=== PATIENT | female | born 1985 | race Caucasian/White ===

== ENCOUNTER → 2021-02-28 10:17 | Outpatient (CLI) | payer OTHER, SELFPAY ==
[2021-03-03 09:58] LABS: Alder IgE <0.10 kU/L (Class 0); Almond IgE <0.10 kU/L (Class 0); Alternaria alternata IgE <0.10 kU/L (Class 0); Aspergillus fumigatus IgE <0.10 kU/L (Class 0); Box Elder IgE <0.10 kU/L (Class 0); Cashew Nut IgE <0.10 kU/L (Class 0); Cladosporium herbarum IgE <0.10 kU/L (Class 0); Cockroach IgE <0.10 kU/L (Class 0); Codfish Allergy IgE < 0.10 kU/L (Class 0); Cottonwood IgE <0.10 kU/L (Class 0); D farinae IgE <0.10 kU/L (Class 0); D pteronyssinus IgE <0.10 kU/L (Class 0); Dog Dander IgE <0.10 kU/L (Class 0); Egg White IgE <0.10 kU/L (Class 0); Elm Tree IgE <0.10 kU/L (Class 0); Hazelnut IgE <0.10 kU/L (Class 0); Immunoglobulin E 9 IU/mL (6-495); Milk IgE <0.10 kU/L (Class 0); Mountain Cedar IgE <0.10 kU/L (Class 0); Mouse Urine Proteins IgE <0.10 kU/L (Class 0); Nettle IgE <0.10 kU/L (Class 0); Oak Tree IgE <0.10 kU/L (Class 0); Peanut IgE <0.10 kU/L (Class 0); Penicillium chrysogen IgE <0.10 kU/L (Class 0); Pigweed, Common IgE <0.10 kU/L (Class 0); Ragweed, Short <0.10 kU/L (Class 0); Salmon Allergy IgE < 0.10 kU/L (Class 0); Scallop Allergy IgE < 0.10 kU/L (Class 0); Sesame seed Allergy IgE < 0.10 kU/L (Class 0); Sheep Sorrel IgE <0.10 kU/L (Class 0); Shrimp IgE <0.10 kU/L (Class 0); Silver Birch IgE <0.10 kU/L (Class 0); Soybean IgE <0.10 kU/L (Class 0); Timothy Grass IgE <0.10 kU/L (Class 0); Tuna Allergy IgE < 0.10 kU/L (Class 0); Walnut Allery IgE < 0.10 kU/L (Class 0); Walnut IgE <0.10 kU/L (Class 0); Wheat Allergy IgE < 0.10 kU/L (Class 0); White ash IgE <0.10 kU/L (Class 0)
[2021-03-20 10:22] LABS: Cat Dander IgE <0.10
== END ==
PROVIDERS: PCP Registered Nurse Diabetes Educator; Referring Provider Registered Nurse Diabetes Educator; Visit Provider Registered Nurse Diabetes Educator
DX: J30.9 Allergic rhinitis, unspecified (principal); Z91.018 Allergy to other foods
CPT/HCPCS: 36415; 82785; 86003

== ENCOUNTER → 2021-04-28 17:11 | Outpatient (CLI) | payer OTHER, SELFPAY ==
[2021-04-28 17:58] LABS: Add Manual Diff / Slide Review NO; Basophils Absolute Auto 0 /uL (0-100); Basophils Percent Auto 0.5 % (0-2); Eosinophils Absolute Auto 100 /uL (0-450); Eosinophils Percent Auto 0.8 % (2-4); Hematocrit 41.5 % (36-46); Hemoglobin 13.8 g/dL (12.0-16.0); Lymphocytes Absolute Auto 1700 /uL (1100-4500); Lymphocytes Percent Auto 25.3 % (25-40); Mean Corpuscular HGB Conc 33.2 % (30-36); Mean Corpuscular Hemoglobin 30.1 PG (26-34); Mean Corpuscular Volume 90.6 fL (80-100); Monocytes Absolute Auto 500 /uL (0-900); Monocytes Percent Auto 6.9 % (3-14); Neutrophils Absolute Auto 4400 /uL (1500-7000); Neutrophils Percent Auto 66.5 % (50-75); Platelet Count 235 X10^3/uL (150-400); Red Blood Cell Count 4.58 X10^6/uL (4.0-5.2); Red Cell Distribution Width 13.1 % (11.6-14.8); White Blood Cell Count 6.6 X10^3/uL (4.5-11.0)
[2021-04-28 18:11] LABS: Alanine Aminotransferase 16 IU/L (<35); Albumin 4.6 g/dL (3.5-5.0); Albumin Globulin Ratio 1.4 (1.0-2.8); Alkaline Phosphatase 53 U/L (38-126); Aspartate Aminotransferase 21 IU/L (14-36); BUN Creatinine Ratio 20.3 (6-22); Bilirubin Total 0.5 mg/dL (0.2-1.3); Blood Urea Nitrogen 15 mg/dL (7-17); Calcium 9.6 mg/dL (8.4-10.2); Carbon Dioxide 27 mmol/L (22-32); Chloride 107 mmol/L (98-107); Estimated Glomerular Filt Rate > 60.0 mL/min (>60); Globulin 3.2 g/dL (1.7-4.1); Glucose 99 mg/dL (70-100); HEMOLYSIS < 15 (0-50); Potassium 3.9 mmol/L (3.4-5.1); Sodium 142 mmol/L (137-145); Total Protein 7.8 g/dL (6.3-8.2)
[2021-04-28 18:52] LABS: TSH w/ Reflex to FT4 0.98 uIU/mL (0.47-4.68)
== END ==
PROVIDERS: PCP Registered Nurse Diabetes Educator; Referring Provider Registered Nurse; Visit Provider Registered Nurse
DX: F41.8 Other specified anxiety disorders (principal); R00.0 Tachycardia, unspecified; Z86.39 Personal history of other endocrine, nutritional and metabolic disease
CPT/HCPCS: 36415; 80053; 84443; 85025

== ENCOUNTER → 2021-05-03 09:51 | Outpatient (CLI) | payer OTHER, SELFPAY ==
--- NOTE | 2021-05-25 08:53 | P.HOLT.S_ITS ---
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 & Results Date Patient Seen: 05/03/21 Requesting provider: José Miguel Galindo Indication: Cardiac arrhythmia Duration of monitoring (days): 7 Diary information: There were 53 patient triggered events and 21 patient diary entries These patient events were variably associated with (within 45 seconds sinus rhythm, PACs, PVCs, and SVT Data: Minimum heart rate identified was 40 beats per minute at 01:22 on 05/09/2021 Maximum heart rate was 178 beats per minute at 10:57 on 05/09/2021 Less than 1% of identified beats were ventricular or supraventricular ectopic in origin, which would classify them as rare. There was 1 run of SVT/atrial tachycardia that lasted 10 beats at a rate of 133 beats per minute Impression: 7 day cardiac exercise physiologist demonstrating PACs PVCs and a single run of supraventricular origin. Patient's reported symptoms are not necessarily associated with anyone particular dysrhythmia. No serious dysrhythmias identified on this study Clinical correlation suggested
== END ==
PROVIDERS: PCP Registered Nurse Diabetes Educator; Referring Provider Registered Nurse; Visit Provider Registered Nurse
DX: I49.9 Cardiac arrhythmia, unspecified (principal)
CPT/HCPCS: 93242; 93244

== ENCOUNTER → 2021-06-08 16:39 | Outpatient (CLI) | payer OTHER, SELFPAY ==
--- NOTE | 2021-06-08 16:40 | DI.CT.S_ITS ---
PROCEDURE: CT FACIAL BONES WO CON INDICATIONS: nasal trauma, r/o fracture TECHNIQUE: Noncontrast 2.5 mm thick axial images acquired from the mandible through the frontal sinuses, with coronal and sagittal reformatting. For radiation dose reduction, the following was used: automated exposure control, adjustment of mA and/or kV according to patient size. COMPARISON: None. FINDINGS: Image quality: Excellent. Bones and teeth: Orbital hillman are intact. Sinus hillman show no fracture or deformity. Nasal bones and septum are intact. Visualized portions of the mandible demonstrate no fractures or subluxation. Zygomatic arches are intact. Pterygoid plates are intact. Visualized portions of the skull base and auditory canals are intact. Sinuses: Paranasal sinuses are aerated, without fluid levels, mucosal thickening, or mucoceles. Mastoid air cells are aerated. Soft tissues: No edema, masses, or fluid collections. No enlarged lymph nodes. No soft tissue lacerations or debris. Vascular: Visualized vascular structures appear normal in the absence of contrast. Bony vascular foramina and canals are intact. IMPRESSION: Unremarkable maxillofacial CT without evidence of nasal bone fracture Dictated by: Bo Meyers M.D. on 06/08/2021 at 16:04 Approved by: Bo Meyers M.D. on 06/08/2021 at 16:07
== END ==
PROVIDERS: PCP Registered Nurse Diabetes Educator; Referring Provider Nurse Practitioner; Visit Provider Nurse Practitioner
DX: S09.92XA Unspecified injury of nose, initial encounter (principal)
CPT/HCPCS: 70486

== ENCOUNTER → 2022-09-30 15:18 | Outpatient (CLI) | payer OTHER, MEDICAID, SELFPAY | PROVIDERS: PCP Family Medicine; Visit Provider Physician Assistant Medical | DX: J02.9 Acute pharyngitis, unspecified (principal) | CPT/HCPCS: 87070; 87880 ==

== ENCOUNTER 2022-10-02 10:44 | Emergency (ER) | payer OTHER, MEDICAID, SELFPAY ==
[2022-10-02 11:05] VITALS: BP 103/75; PULSE 103; RESP 20; TEMP 36.7; O2SAT 100
--- NOTE | 2022-10-02 11:14 | PC.NURSE ---
called patient, walked down [place]tega, no answer .
[2022-10-02 12:19] LABS: Influenza A - CEPHEID Flu A NEGATIVE (NEGATIVE); Influenza B - CEPHEID Flu B NEGATIVE (NEGATIVE); Respiratory Syncytial Virus Negative (Negative)
[2022-10-02 13:48] LABS: COVID-19 CEPHEID 4-PLEX PCR Negative (Negative)
--- NOTE | 2022-10-02 14:58 | ED_ITS ---
HPI - URI/Sore Throat General Chief Complaint: Upper Respiratory Symptoms Stated Complaint: headache/sore throat/T-6 Time Seen by Provider: 10/02/22 10:47 Source: patient Mode of arrival: Family Vehicle Related Data Home Medications Medication Instructions Recorded Confirmed Multivitamins PO 04/28/21 09/30/22 Zyrtec PO 04/28/21 09/30/22 fluticasone furoate 27.5 1 spray intranasal .PRN 04/28/21 09/30/22 mcg/actuation nasal spray,suspension (Flonase Sensimist) sumatriptan succinate 50 mg tablet See Rx Instructions PO .PRN 04/28/21 09/30/22 Previous Rx's Medication Instructions Recorded albuterol sulfate 90 mcg/actuation 2 inh inhalation Q4-6H PRN 04/05/21 aerosol inhaler shortness of breath or wheezing #8.5 grams benzonatate 200 mg capsule 200 mg PO BID-TID PRN cough #20 08/03/22 caps azithromycin 250 mg tablet See Rx Instructions PO .COMPLEX #6 09/30/22 tabs Allergies Allergy/AdvReac Type Severity Reaction Status Date / Time amoxicillin Allergy Intermediate Rash Verified 10/02/22 11:05 Penicillins Allergy Intermediate Rash Verified 10/02/22 11:05 Cephalosporins Allergy Mild Rash Verified 10/02/22 11:05 Patient History Medical History Allergic rhinitis Chest pain Encounter for IUD removal Migraine with aura Mild intermittent asthma Tachycardia Social History (Updated 04/05/21 @ 08:14 by ZOHRA Diamond) Smoking Status: Never smoker additional social history: 02/28/2021: She lives in [place], [place] with her and her 2 and 3-year-old daughters. They moved from [place], [place] in December 2020. 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 She enjoys her job though it is somewhat stressful, works about 40 hours per week. Her is a [id number] dad. The patient is originally from [place]. Smoking Status: Never smoker alcohol intake frequency: a few times a week Substance Use Type: does not use Exam Initial Vital Signs Initial Vital Signs: Vital Signs Temperature 98.1 F 10/02/22 11:05 Pulse Rate 103 H 10/02/22 11:05 Respiratory Rate 20 10/02/22 11:05 Blood Pressure 103/75 10/02/22 11:05 Pulse Oximetry 100 10/02/22 11:05 Oxygen Delivery Method 10/02/22 11:05 Course Orders Ordered: ED Orders 10/02/22 11:05 Covid-19 + FLU A/B + RSV - PCR Stat Throat Culture Stat Vital Signs Vital signs: Vital Signs - 8 hr 10/02/22 11:05 Temperature 98.1 F Pulse Rate 103 H Respiratory Rate 20 Blood Pressure 103/75 Pulse Oximetry 100 Oxygen Delivery Method Room Air MDM - URI/Sore Throat Lab Data Labs: Lab Results 10/02/22 Range/Units 11:05 SARS-CoV-2 (PCR) Negative (Negative) Influenza A (RT-PCR) Flu a negative (NEGATIVE) Influenza B (RT-PCR) Flu b negative (NEGATIVE) RSV (PCR) Negative (Negative) Point of Care Testing Rapid Strep A Negative Discharge Plan Departure Patient Disposition: Left Without Being Seen Clinical Impression: Patient left without being seen Prescriptions: No Action azithromycin 250 mg tablet See Rx Instructions PO .COMPLEX Qty: 6 0RF Rx Instructions: For 250 mg dose pack: take 500 mg today (day 1), then 250 mg for 4 days (days 2-5) PO benzonatate 200 mg capsule 200 mg PO BID-TID PRN (Reason: cough) Qty: 20 0RF Flonase Sensimist 27.5 mcg/actuation spray,suspension 1 spray intranasal .PRN Rx Instructions: into each nostril albuterol sulfate 90 mcg/actuation HFA aerosol inhaler 2 inh inhalation Q4-6H PRN (Reason: shortness of breath or wheezing) Qty: 8.5 1RF sumatriptan succinate 50 mg tablet See Rx Instructions PO .PRN Rx Instructions: take 1 tab at onset of headache; if no relief may repeat 1 tab after at least 2 hrs; max = 4 tabs/24 hr PO .PRN; Zyrtec PO Multivitamins PO
== END 2022-10-02 14:57 | disposition left against medical advice (07) ==
PROVIDERS: Emergency Medicine; Emergency Provider Student in an Organized Health Care Education/Training Program; PCP Family Medicine
DX: R50.9 Fever, unspecified (principal); Z20.822 Contact with and (suspected) exposure to COVID-19
CPT/HCPCS: 0241U; 87070; 87880; 99282